=== PATIENT | male | born 1975 | race Caucasian/White ===

== ENCOUNTER 2017-03-12 10:00 | Emergency (ER) | payer OTHER | END 2017-03-12 11:11 | disposition home or self-care (01) | DX: R42 Dizziness and giddiness (principal); Z87.891 Personal history of nicotine dependence ==

== ENCOUNTER 2017-07-15 10:27 | Emergency (ER) | payer OTHER ==
--- NOTE | 2017-07-15 12:34 | ED Physician Documentation ---
PD HPI FOCAL NEURO - Stated complaint Stated Complaint: RT FT NUMB - Chief complaint Chief Complaint: Ext Problem - History obtained from History obtained from: Patient - History of Present Illness Timing - onset: Today Timing - duration: Hours (he was doing easy exercises, no direct impact and noted onset of numbness in right great toe/foot/anterior lower leg. Had had similar with nerve compression prior to low back surgery few years ago. Has only mild back pain. No weakness.) Timing - details: Abrupt onset Severity of deficit: Moderate Weakness: Leg, Foot, Right Associated symptoms: No: Headache, Nausea / vomiting Contributing factors: negative: Anticoagulated, Vascular dz Baseline status: positive: A&OX3, ambulatory, indep Similar symptoms before: Diagnosis (sciatic nerve compression lower lumbar disc) Recently seen: Not recently seen Review of Systems Constitutional: denies: Fever, Chills GI: denies: Nausea, Vomiting, Diarrhea Skin: denies: Rash, Lesions Neurologic: reports: Numbness. denies: Focal weakness PD PAST MEDICAL HISTORY - Past Medical History Cardiovascular: None Respiratory: None Neuro: None Endocrine/Autoimmune: None GI: None : None HEENT: Other Psych: None Musculoskeletal: Chronic back pain Derm: None - Past Surgical History Past Surgical History: Yes General: Appendectomy Ortho: Spine surgery - Present Medications Home Medications: Ambulatory Orders Medication Instructions Recorded Confirmed Dexamethasone [Decadron] 4 mg PO DAILY #5 tablet 07/15/17 Methocarbamol [Robaxin] 500 mg PO Q6H PRN #25 tablet 07/15/17 - Allergies Allergies/Adverse Reactions: Allergies Allergy/AdvReac Type Severity Reaction Status Date / Time No Known Drug Allergies Allergy Verified 03/12/17 10:11 - Social History Does the pt smoke?: Yes Smoking Status: Former smoker Does the pt drink ETOH?: No Does the pt have substance abuse?: No - Immunizations Immunizations are current?: Yes - POLST Patient has POLST: No PD ED PE NORMAL - Vitals Vital signs reviewed: Yes - General General: Alert and oriented X 3, No acute distress, Well developed/nourished - Abdomen Abdomen: Soft, Non tender - Back Back: No CVA TTP, No spinal TTP (some muscular tenderness right lumbar muscles. ) - Derm Derm: Normal color, Warm and dry, No rash - Neuro Neuro: Alert and oriented X 3, No motor deficit, Normal speech, Other ( decreased sensation to touch anterolateral lower leg and great toe/dorsum foot. He can dorsiflex okay. Only on right symptoms. ) - Psych Psych: Normal mood, Normal affect Results - Vitals Vitals: Oxygen O2 Source Room air - Rads (name of study) lumbar Radiology: Prelim report reviewed, EMP read contemporaneously (hardware in place , no acute process), See rad report PD MEDICAL DECISION MAKING - ED course Complexity details: considered differential (Symptoms c/w recurrent sciatic nerve irritation, which he had prior to back surgery. He does not have weakness in area and no caudal symptoms. Hardware in place on plain film. ), d/w patient Departure - Departure Disposition: 01 Home, Self Care Clinical Impression: Numbness of right foot Sciatica Qualifiers: Laterality: right Qualified Code(s): M54.31 - Sciatica, right side Condition: Stable Record reviewed to determine appropriate education?: Yes Instructions: ED Sciatica Follow-Up: BRIGETTE Mujica [Provider Group] Prescriptions: Dexamethasone [Decadron] 4 mg PO DAILY #5 tablet Methocarbamol [Robaxin] 500 mg PO Q6H PRN #25 tablet PRN Reason: Spasms Comments: The irritation of the nerve may be from muscle spasms or inflammation and so try the Decadron daily for 5 more days and methocarbamol 3-4 times a day for the next for 5 days. Avoid heavy lifting and vigorous activity. Recheck with your primary care or consult your back surgeon at [facility] if the leg numbness persists more than a day or 2. Discharge Date/Time: 07/15/17 14:46
[2017-07-15] MEDS: DEXAMETHASONE 10 MG/ML VIAL PO STA (13:05)
[2017-07-15] MEDS ORDERED: CHERRY SYRUP 10 ML UDC PO ONE (13:07)
[2017-07-15] MEDS ORDERED: DEXAMETHASONE 10 MG/ML VIAL ONE (13:07)
--- NOTE | 2017-07-15 14:32 | XRAY Preliminary Report ---
Exam: XR Lumbar Spine 2 View IMPRESSION: Postoperative changes, mild disk space narrowing at L3-L4 and L5-S1. [facility] SITE ID: [id number]
--- NOTE | 2017-07-15 14:34 | XRAY Report ---
EXAM: LUMBOSACRAL SPINE RADIOGRAPHY EXAM DATE: 07/15/2017 02:19 PM. CLINICAL HISTORY: Prior back surgery; onset right foot numb today. COMPARISONS: None. TECHNIQUE: 3 views. FINDINGS: Alignment: Normal. No spondylolisthesis or scoliosis. Bones: 5 lumbar vertebrae. No fractures or bone lesions. Pedicle screws and rods in L5 and S1 with as sociated postoperative changes. Disks: Intervertebral disk device at L5-S1 with mild disk space narrowing. Mild narrowing at L3-L4. O ther disk spaces well-preserved. Facets: Minimal degenerative changes. Sacroiliac Joints: Unremarkable. Soft Tissues: Unremarkable. IMPRESSION: Postoperative changes, mild disk space narrowing at L3-L4 and L5-S1. [facility] Referring Provider Line: [phone] SITE ID: [id number]
[2017-07-15 14:46] VITALS: BP 120/72
== END 2017-07-15 14:46 | disposition home or self-care (01) ==
LOC: ED 10:27
DX: R20.0 Anesthesia of skin (principal); M54.31 Sciatica, right side; Z87.891 Personal history of nicotine dependence
CPT/HCPCS: 72100; 99283; A9270

== ENCOUNTER 2017-10-18 08:51 | Emergency (ER) | payer OTHER ==
[2017-10-18 09:40] LABS: BASOPHILS # (AUTO) 0.1 10^3/uL (0.0-0.1); BASOPHILS % (AUTO) 0.8 %; EOSINOPHILS # (AUTO) 0.1 10^3/uL (0.0-0.7); EOSINOPHILS % (AUTO) 1.7 %; HGB - HEMOGLOBIN 17.4 g/dL (14.0-18.0); LYMPHOCYTES # (AUTO) 1.4 10^3/uL (1.5-3.5); LYMPHOCYTES % (AUTO) 20.1 %; MEAN CORPUSCULAR HEMOGLOBIN 32.3 pg (27.0-31.0); MEAN CORPUSCULAR HGB CONC 35.5 g/dL (32.0-36.0); MEAN PLATELET VOLUME 10.1 fL (7.4-11.4); MONOCYTES # (AUTO) 0.6 10^3/uL (0.0-1.0); MONOCYTES % (AUTO) 8.7 %; NEUTROPHILS # (AUTO) 4.8 10^3/uL (1.5-6.6); NEUTROPHILS % (AUTO) 68.7 %; RED BLOOD COUNT 5.38 10^6/uL (4.70-6.10); RED CELL DISTRIBUTION WIDTH 12.8 % (12.0-15.0)
[2017-10-18] MEDS ORDERED: SODIUM CHLORIDE 0.9% 1,000 ML IV ONE (09:51)
[2017-10-18] MEDS ORDERED: ONDANSETRON 4 MG/2 ML VIAL IVP STA (09:51)
--- NOTE | 2017-10-18 09:51 | ED Physician Documentation ---
PD HPI ABD PAIN - Stated complaint Stated Complaint: VOMITING,DIARRHEA - Chief complaint Chief Complaint: Abd Pain - History obtained from History obtained from: Patient - History of Present Illness Timing - onset: How many days ago (pt with nausea and vomiting and diarrhea that started 24-36 hours ago. Multiple episodes of each, no fevers, no travel, no ABX use. has not tried any treatment for these complaints. No rashes. last episode of each was this AM.) Review of Systems Constitutional: denies: Fever, Chills Ears: denies: Drainage/discharge Nose: denies: Sinus pressure / pain Throat: denies: Sore throat Cardiac: denies: Chest pain / pressure, Palpitations Respiratory: denies: Dyspnea, Cough, Wheezing GI: reports: Abdominal Pain, Nausea, Vomiting, Diarrhea. denies: Constipation, Hematemesis, Bloody / black stool : denies: Dysuria, Frequency Skin: denies: Rash, Lesions Musculoskeletal: denies: Back pain Neurologic: denies: Headache, LOC PD PAST MEDICAL HISTORY - Past Medical History Past Medical History: Yes Cardiovascular: None Respiratory: None Neuro: Other Endocrine/Autoimmune: None GI: None : None HEENT: Other Psych: None Musculoskeletal: Chronic back pain Derm: None Other Past Medical History: vertigo - Past Surgical History Past Surgical History: Yes General: Appendectomy Ortho: Spine surgery - Present Medications Home Medications: Ambulatory Orders Medication Instructions Recorded Confirmed Ondansetron Odt [Zofran Odt] 4 mg PO Q6H PRN #7 tablet 10/18/17 - Allergies Allergies/Adverse Reactions: Allergies Allergy/AdvReac Type Severity Reaction Status Date / Time No Known Drug Allergies Allergy Verified 10/18/17 09:17 - Social History Does the pt smoke?: No Smoking Status: Never smoker Does the pt drink ETOH?: No Does the pt have substance abuse?: No - Immunizations Immunizations are current?: Yes - POLST Patient has POLST: No PD ED PE NORMAL - General General: Alert and oriented X 3 - HEENT HEENT: Atraumatic, Moist mucous membranes - Cardiac Cardiac: RRR, No murmur, No gallop, No rub - Respiratory Respiratory: No respiratory distress, Clear bilaterally - Abdomen Abdomen: Soft, Non tender, Non distended - Back Back: No CVA TTP - Derm Derm: Normal color, No rash - Extremities Extremities: No deformity - Neuro Neuro: Alert and oriented X 3, 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, No motor deficit, No sensory deficit, Normal speech Eye Opening: Spontaneous Motor: Obeys Commands Verbal: Oriented GCS Score: 15 - Psych Psych: Normal mood, Normal affect Results - Vitals Vitals: Vital Signs - 24 hr 10/18/17 09:14 Temperature 36.7 C Heart Rate 91 Respiratory 16 Rate Blood Pressure 139/86 H O2 Saturation 97 Oxygen O2 Source Room air - Labs Labs: Laboratory Tests 10/18/17 10/18/17 09:34 09:34 WBC 7.0 RBC 5.38 Hgb 17.4 Hct 49.0 MCV 91.0 MCH 32.3 H MCHC 35.5 RDW 12.8 Plt Count 181 MPV 10.1 Neut # 4.8 Lymph # 1.4 L [place] # 0.6 Eos # 0.1 Baso # 0.1 Absolute Nucleated RBC 0.00 Nucleated RBC % 0.0 Sodium 137 Potassium 3.7 Chloride 104 Carbon Dioxide 25 Anion Gap 8.0 BUN 16 Creatinine 1.0 Estimated GFR (MDRD) 82 L Glucose 102 H Calcium 9.5 Total Bilirubin 0.9 AST 20 ALT 49 Alkaline Phosphatase 63 Total Protein 8.1 Albumin 5.2 Globulin 2.9 Albumin/Globulin Ratio 1.8 Lipase 23 PD MEDICAL DECISION MAKING - ED course Complexity details: d/w patient ED course: pt is healthy. no travel. no indication for ABX for the treatment of his diarrhea. has tolerated PO intake. No hx of UTI's, received fluids in the ER. Will discharge home with antinausea meds. Departure - Departure Disposition: 01 Home, Self Care Clinical Impression: Vomiting Qualifiers: Vomiting type: unspecified Vomiting Intractability: non-intractable Nausea presence: with nausea Qualified Code(s): R11.2 - Nausea with vomiting, unspecified Diarrhea Qualifiers: Diarrhea type: unspecified type Qualified Code(s): R19.7 - Diarrhea, unspecified Condition: Good Instructions: ED Nausea Vomiting Follow-Up: NIKOLAS AKHTAR [Primary Care Provider] - Prescriptions: Ondansetron Odt [Zofran Odt] 4 mg PO Q6H PRN #7 tablet PRN Reason: Nausea / Vomiting Comments: Return to the ER for any new or worsening symptoms.
[2017-10-18 09:53] LABS: ALBUMIN/GLOBULIN RATIO 1.8 (1.0-2.2); BILIRUBIN,TOTAL 0.9 mg/dL (0.2-1.0); CALCIUM 9.5 mg/dL (8.5-10.3); POTASSIUM 3.7 mmol/L (3.5-5.0); TOTAL PROTEIN 8.1 g/dL (6.7-8.2)
[2017-10-18] MEDS ORDERED: ONDANSETRON 4 MG/2 ML VIAL ONE (10:15)
[2017-10-18 11:29] VITALS: BP 141/88
[2017-10-18 11:41] LABS: BILIRUBIN,URINE NEGATIVE (NEGATIVE)
[2017-10-18 11:42] LABS: UA CHARGE (STRIP ONLY) YES; UR CULTURE IF IND NOT INDICATED
== END 2017-10-18 11:34 | disposition home or self-care (01) ==
LOC: ED 08:51
DX: R11.2 Nausea with vomiting, unspecified (principal); R19.7 Diarrhea, unspecified
CPT/HCPCS: 36415; 80053; 81001; 81003; 83690; 85025; 87086; 96361; 96374; 99283

== ENCOUNTER 2018-02-04 14:44 | Emergency (ER) | payer OTHER ==
--- NOTE | 2018-02-04 16:22 | ED Physician Documentation ---
PD HPI MALE - Stated complaint Stated Complaint: GROIN PX - Chief complaint Chief Complaint: General - History obtained from History obtained from: Patient - History of Present Illness Timing - onset: Today Timing - details: Abrupt onset Associated symptoms: Scrotal swelling, Other (inguinal pain onset when lifting heavy object. [place] a tear/pressure feeling right inguinal area and some feeling of fullness in scrotum. Pain with movement.). No: Dysuria, Urinary frequency Similar symptoms before: Has not had sx before Recently seen: Not recently seen Review of Systems Cardiac: denies: Chest pain / pressure, Palpitations Respiratory: denies: Dyspnea, Cough GI: denies: Abdominal Pain, Nausea, Vomiting, Constipation, Diarrhea : denies: Dysuria Neurologic: denies: Focal weakness, Numbness, Near syncope PD PAST MEDICAL HISTORY - Past Medical History Cardiovascular: None Respiratory: None Neuro: Other Endocrine/Autoimmune: None GI: None : None HEENT: Other Psych: None Musculoskeletal: Chronic back pain Derm: None - Past Surgical History Past Surgical History: Yes General: Appendectomy Ortho: Spine surgery - Present Medications Home Medications: Ambulatory Orders Medication Instructions Recorded Confirmed Naproxen [Naprosyn] 500 mg PO BID PRN #20 tablet 02/04/18 Tramadol HCl 50 mg PO Q6H PRN #20 tablet 02/04/18 - Allergies Allergies/Adverse Reactions: Allergies Allergy/AdvReac Type Severity Reaction Status Date / Time No Known Drug Allergies Allergy Verified 02/04/18 14:49 - Social History Does the pt smoke?: No Smoking Status: Never smoker Does the pt drink ETOH?: No Does the pt have substance abuse?: No - Immunizations Immunizations are current?: Yes - POLST Patient has POLST: No PD ED PE NORMAL - Vitals Vital signs reviewed: Yes - General General: Alert and oriented X 3, Well developed/nourished, Other (appears in pain due to right inguinal and scrotal area. No abd pain per se. ) - Cardiac Cardiac: RRR - Respiratory Respiratory: Clear bilaterally - Abdomen Abdomen: Normal bowel sounds, Soft, Non tender, Non distended - Male Male : Other (right inguinal area very tender with feeling of fullness concerning for hernia. There is some tenderness right scrotal area. The testicle feels normal itself and is at normal lie. ) - Rectal Rectal: Deferred - Back Back: No CVA TTP - Derm Derm: Normal color, Warm and dry - Extremities Extremities: No tenderness to palpate, Normal ROM s pain - Neuro Neuro: Alert and oriented X 3, No motor deficit, Normal speech Results - Vitals Vitals: Vital Signs - 24 hr 02/04/18 02/04/18 02/04/18 14:45 19:10 19:17 Temperature 37.0 C Heart Rate 101 H 82 Respiratory 16 18 Rate Blood Pressure 147/92 H 143/107 H 142/95 H O2 Saturation 94 97 02/04/18 02/04/18 02/04/18 19:19 21:00 21:35 Temperature 36.4 C L Heart Rate 79 75 74 Respiratory 16 16 15 Rate Blood Pressure 130/89 H 115/41 L 126/72 O2 Saturation 97 98 100 Oxygen O2 Source Room air - Rads (name of study) scrotal U/S Radiology: Prelim report reviewed, Discussed with rads (no obvious abnormality. He could not comment on inguinal area per se (apparently is a separate order for inguinal U/S). He suggested if concern for acute hernia or incarceration, then CT or US are both good, and CT shows internal ring well too. ) pelvic CT Radiology: Prelim report reviewed (no signs of hernia at this time (CT not sure if done with valsalva, but would show an incarcerated hernia anyway, which is the concern).), Discussed with rads Departure - Departure Disposition: 01 Home, Self Care Clinical Impression: Strain of muscle of right groin region Inguinal hernia Qualifiers: Obstruction and gangrene presence: without obstruction or gangrene Laterality: unilateral Recurrence: non-recurrent Qualified Code(s): K40.90 - Unilateral inguinal hernia, without obstruction or gangrene, not specified as recurrent Condition: Stable Record reviewed to determine appropriate education?: Yes Instructions: ED Strain Groin, ED Hernia Inguinal Follow-Up: NIKOLAS AKHTAR [Primary Care Provider] - Prescriptions: Naproxen [Naprosyn] 500 mg PO BID PRN #20 tablet PRN Reason: Pain Tramadol HCl 50 mg PO Q6H PRN #20 tablet PRN Reason: Pain Comments: There is some fullness and inflammation in the groin area which can be consistent with a muscle strain and inflammation. There may be some hernia that can be in and out in that area. The CT scan did not show any hernia, so if there is a hernia, it is not consistently stuck out. Rest and no heavy lifting and minimal walking for 2-3 days. Use naproxen or ibuprofen 2-3 times a day for the next 5-6 days. Add pain medicine if needed. Follow-up with your primary care in couple of days, call for an appointment. Forms: Activity restrictions Discharge Date/Time: 02/04/18 21:35
[2018-02-04] MEDS ORDERED: ACETAMINOPHEN 325 MG TABLET PO STA (16:33)
[2018-02-04] MEDS ORDERED: IBUPROFEN 600 MG TABLET PO STA (16:33)
[2018-02-04] MEDS ORDERED: HYDROcod/ACETAM 5/325 MG TABLET PO STA ×2 (17:43→21:18)
--- NOTE | 2018-02-04 19:28 | Ultrasound Report ---
EXAM: SCROTAL ULTRASOUND EXAM DATE: 02/04/2018 06:41 PM. CLINICAL HISTORY: Right inguinal/scrotal pain with lifting heavy . COMPARISON: None. TECHNIQUE: Real-time scanning was performed with static images obtained. Both color-flow and Doppler spectral analysis were utilized. FINDINGS: Right: Testis: 3.8 x 2.0 x 3.8 cm. Normal size and echotexture. No mass, calcification, or abnormal blood fl ow. Epididymis: 2.0 x 0.6 x 0.9 cm. Normal size and echotexture. No mass or abnormal blood flow. 0.3 x 0. 2 x 0.3 cm epididymal head cyst. Hydrocele: Small with low level internal echoes. Varicocele: None. Pampiniform plexus veins appear normal in size. The patient seems to be painful ove r the area of the spermatic cord, but no gross abnormality is identified. Left: Testis: 4.5 x 2.6 x 3.2 cm. Normal size and echotexture. No mass, calcification, or abnormal blood fl ow. Epididymis: 3.2 x 0.4 x 1.0 cm. Normal size and echotexture. No mass or abnormal blood flow. Hydrocele: Small simple. Varicocele: Mild. IMPRESSION: 1. Negative scrotal ultrasound without findings to explain right-sided pain. 2. Dedicated inguinal ultrasound assessment for hernia was not performed. [facility] Referring Provider Line: [phone] SITE ID: [id number]
--- NOTE | 2018-02-04 19:28 | Ultrasound Preliminary Report ---
Exam: US TESTICLE W/DOPPLER LIMITED IMPRESSION: 1. Negative scrotal ultrasound without findings to explain right-sided pain. 2. Dedicated inguinal ultrasound assessment for hernia was not performed. [facility] SITE ID: [id number]
--- NOTE | 2018-02-04 21:09 | CT Report ---
EXAM: CT BONY PELVIS WITHOUT CONTRAST EXAM DATE: 02/04/2018 08:53 PM. CLINICAL HISTORY: Possible inguinal hernia. Abrupt onset right groin pain after heavy lifting. COMPARISON: Scrotal ultrasound today. TECHNIQUE: Thin-section axial images were acquired of the pelvis without contrast. Post-processing: C oronal and sagittal reformats. Other: No indication by the technologist that the study was performed with Valsalva maneuver. In accordance with CT protocol optimization, one or more of the following dose reduction techniques w ere utilized for this exam: automated exposure control, adjustment of mA and/or KV based on patient s ize, or use of iterative reconstructive technique. FINDINGS: Bones: No fracture or bone lesion. Bilateral pedicle screws and longitudinal stabilization spanning L 5-S1. L5-S1 disk space bone graft material. Sacroiliac Joints: No widening, erosions, or sclerosis. Symphysis Pubis: Unremarkable. Right Hip: The joint space is preserved. No calcified loose bodies. Left Hip: The joint space is preserved. No calcified loose bodies. Musculature: Normal. No fatty atrophy. Pelvic Cavity: The visualized bowel, bladder, and reproductive organs are unremarkable on this noncon trast exam. Other: No lymphadenopathy. No free air or free fluid. Minimal bilateral iliac artery calcification. T he other visualized soft tissues are unremarkable. Scrotum is unremarkable. No inguinal hernia. IMPRESSION: Negative noncontrast pelvic CT without findings to explain right-sided pain. No right ing uinal hernia at rest. [facility] The above findings were discussed with Dr. Stallworth by Dr. Junior Arias at 21:08 hrs on 02/04/18. Referring Provider Line: [phone] SITE ID: [id number]
--- NOTE | 2018-02-04 21:09 | CT Preliminary Report ---
Exam: CT PELVIS W/O IMPRESSION: Negative noncontrast pelvic CT without findings to explain right-sided pain. No right ing uinal hernia at rest. [facility] The above findings were discussed with Dr. Stallworth by Dr. Junior Arias at 21:08 hrs on 02/04/18. SITE ID: [id number]
[2018-02-04] MEDS ORDERED: HYDROcod/ACET 5/325 Prepack 6 PO STA (21:18)
[2018-02-04 21:55] VITALS: BP 126/72
== END 2018-02-04 21:35 | disposition home or self-care (01) ==
LOC: ED 14:44
DX: S39.011A Strain of muscle, fascia and tendon of abdomen, initial encounter (principal); X50.0XXA Overexertion from strenuous movement or load, initial encounter; K40.90 Unilateral inguinal hernia, without obstruction or gangrene, not specified as recurrent
CPT/HCPCS: 72192; 76870; 93976; 99283; A9270

== ENCOUNTER 2019-01-07 18:41 | Emergency (ER) | payer OTHER ==
--- NOTE | 2019-01-07 19:41 | XRAY Report ---
Reason: pain with swelling. injury last night. Procedure Date: 01/07/2019 Accession Number: [id number] / [id number] Procedure: XR - Foot 3 View LT CPT Code: FULL RESULT: EXAM: LEFT FOOT RADIOGRAPHY EXAM DATE: 01/07/2019 07:10 PM. CLINICAL HISTORY: Pain with swelling. Injury last night. COMPARISON: TOE(S) LT 08/02/2014 7:23 AM. TECHNIQUE: 3 views. FINDINGS: Bones: No fracture or focal bony lesion. Joints: No evidence of dislocation. Soft Tissues: No unexpected soft tissue findings. IMPRESSION: No evidence of fracture or dislocation. [facility]
--- NOTE | 2019-01-07 21:03 | ED Physician Documentation ---
PD HPI LOWER EXT INJURY - Stated complaint Stated Complaint: TOE PX - Chief complaint Chief Complaint: Trauma Ext - History obtained from History obtained from: Patient - History of Present Illness PD HPI LOW EXT INJURY LOCATION: Left, Toe Type of injury: Blunt / blow (his dog jumped and landed onto left great toe area yesterday, with some bruising and tenderness. Today, the MTP area is extremely painful, tender, with local swelling.) Where injury occurred: Home Timing - onset: Last night Timing - details: Abrupt onset, Still present (much worse today) Worsened by: Moving, Palpating Associated symptoms: Swelling, Discolored (red). No: Weakness, Numbness Similar symptoms before: No diagnosis (he says he had had similar pain right great toe a few years ago without obvious cause and it lasted several days and went away. No Dx.) Recently seen: Not recently seen Review of Systems Skin: denies: Abrasion (s), Laceration (s) Neurologic: denies: Focal weakness, Numbness PD PAST MEDICAL HISTORY - Past Medical History Past Medical History: Yes Cardiovascular: None Respiratory: None Endocrine/Autoimmune: None GI: None : None HEENT: Other Psych: None Musculoskeletal: Chronic back pain Derm: None - Past Surgical History Past Surgical History: Yes General: Appendectomy Ortho: Spine surgery, Other - Present Medications Home Medications: Ambulatory Orders Medication Instructions Recorded Confirmed Naproxen [Naprosyn] 500 mg PO BID PRN #20 tablet 02/04/18 Tramadol HCl 50 mg PO Q6H PRN #20 tablet 02/04/18 Dexamethasone [Decadron] 4 mg PO DAILY #5 tablet 01/07/19 Naproxen 500 mg PO BID #20 tablet 01/07/19 Oxycodone HCl/Acetaminophen 1 - 2 each PO Q6H PRN #14 tablet 01/07/19 [Percocet 5-325 mg Tablet] - Allergies Allergies/Adverse Reactions: Allergies Allergy/AdvReac Type Severity Reaction Status Date / Time No Known Drug Allergies Allergy Verified 01/07/19 19:07 - Social History Does the pt smoke?: No Smoking Status: Never smoker Does the pt drink ETOH?: No Does the pt have substance abuse?: No - Immunizations Immunizations are current?: Yes - POLST Patient has POLST: No PD ED PE NORMAL - Vitals Vital signs reviewed: Yes - General General: Alert and oriented X 3, Well developed/nourished, Other (appears in pain) - Derm Derm: Normal color, Warm and dry - Extremities Extremities: Other (left great toe MTP with swelling, very tender, focal redness. No skin lesions/lacerations. Has some bruising dorsal distal toe proximal to nailbed. ) Results - Vitals Vitals: Vital Signs - 24 hr 01/07/19 01/07/19 19:04 21:41 Temperature 36.5 C Heart Rate 93 94 Respiratory 14 16 Rate Blood Pressure 141/96 H 136/86 H O2 Saturation 98 98 Oxygen O2 Source Room air PD MEDICAL DECISION MAKING - ED course Complexity details: considered differential (contusion of the great toe area, but very tender with redness seems likely gout inflammation in response to the injury. ), d/w patient Departure - Departure Disposition: 01 Home, Self Care Clinical Impression: Foot contusion Qualifiers: Encounter type: initial encounter Laterality: left Qualified Code(s): S90.32XA - Contusion of left foot, initial encounter Gout attack Qualifiers: Gout site: toe Gout etiology: unspecified cause Laterality: left Qualified Code(s): M10.9 - Gout, unspecified Condition: Stable Record reviewed to determine appropriate education?: Yes Instructions: ED Arthritis Gout, ED Sprain Toe Follow-Up: Terrell Rios ARNP [Primary Care Provider] - Prescriptions: Dexamethasone [Decadron] 4 mg PO DAILY #5 tablet Naproxen 500 mg PO BID #20 tablet Oxycodone HCl/Acetaminophen [Percocet 5-325 mg Tablet] 1 - 2 each PO Q6H PRN #14 tablet PRN Reason: pain Comments: This may be solely from the bruising and injury from your dog. However the degree of tenderness and some redness at the joint areas are suggestive of a gout episode. These would both be treated with reduced motion with the orthopedic shoe and elevating the toe often. Anti-inflammatories would be the mainstay for treatment with both nonsteroidal and steroidal anti-inflammatories. Add Tylenol or Percocet if needed for pain. Recheck if not improving over the next several days as both the bruising or gout should improve with these. Discharge Date/Time: 01/07/19 21:44
[2019-01-07] MEDS ORDERED: CHERRY SYRUP 10 ML UDC PO ONE (21:24)
[2019-01-07] MEDS: oxyCODONE 5 MG TABLET PO STA (21:25)
[2019-01-07] MEDS: oxyCODONE/ACET 5/325 Prepack 4 PO STA (21:25)
[2019-01-07] MEDS: NAPROXEN 250 MG TABLET PO STA (21:25)
[2019-01-07] MEDS: DEXAMETHASONE 10 MG/ML VIAL PO STA (21:25)
[2019-01-07 21:44] VITALS: BP 136/86
== END 2019-01-07 21:44 | disposition home or self-care (01) ==
LOC: ED 18:41
DX: S90.32XA Contusion of left foot, initial encounter (principal); W54.8XXA Other contact with dog, initial encounter; M10.9 Gout, unspecified
CPT/HCPCS: 99283

== ENCOUNTER 2019-02-04 07:29 | Outpatient (CLI) | payer OTHER ==
[2019-02-04] MEDS ORDERED: GADOBUTROL 10 MMOL/10 ML VIAL ONE (07:47)
[2019-02-04] MEDS ORDERED: GADOBUTROL 10 MMOL/10 ML VIAL IVP ONE (08:35)
--- NOTE | 2019-02-04 09:44 | MRI Report ---
Reason: SPONDYLOSIS WITHOUT MYELOPATHY OR RADICULOPATHY,CRISTIAN Procedure Date: 02/04/2019 Accession Number: [id number] / [id number] Procedure: MRI - Lumbar Spine W/WO CPT Code: FULL RESULT: EXAM: MRI LUMBAR SPINE WITHOUT AND WITH CONTRAST EXAM DATE: 02/04/2019 08:31 AM. CLINICAL HISTORY: Low back pain. Bilateral lower extremity radiculopathy with pain radiating into both legs. History of previous diskectomy and fusion at L5-S1. COMPARISONS: LUMBAR SPINE 2 VIEW 07/15/2017 1:59 PM LUMBAR SPINE W/O 05/29/2013 8:42 AM. TECHNIQUE: Multiplanar, multisequence T1-weighted and fluid-sensitive sequences of the lumbar spine from T12 to S1 before and after administration of intravenous contrast. Other: None. IV contrast: 10 mL Gadavist. FINDINGS: Neurologic Structures: The conus terminates at upper L2. The conus medullaris and cauda equina are unremarkable. Alignment: Mild retrolisthesis of L3 on L4 and L4 on L5 appears unchanged from prior radiographs but is progressive from prior MRI. Bone Marrow: Five [id number] lumbar vertebral bodies are assumed. No gross fractures or bone lesions. No bone marrow replacement or abnormal enhancement. Disk Levels/Facets: T12-L1: Unremarkable. L1-L2: Unremarkable. L2-L3: Unremarkable. L3-L4: Mild to moderate degenerative disk disease. Circumferential disk bulge. Additional asymmetric left intraforaminal and far lateral broad-based protrusion with enhancing annular fissure. Mild facet arthropathy. Mild stenosis of the right foramen and central canal. Moderate stenosis of the left foramen. L4-L5: Mild to moderate degenerative disk disease and facet arthropathy. Circumferential disk bulge. Posterior annular fissure. Additional right greater than left intraforaminal and far lateral protrusion. Far right lateral annular fissure. Mild central stenosis. No cauda equina compression. Mild left and mild to moderate right foraminal stenosis. L5-S1: Fused disk space. Patent central canal after dorsal surgical decompression. Susceptibility artifact from posterior dariela and screw fusion hardware. No significant residual stenosis. Disk herniation seen previously is no longer evident. Spinal Canal: No enhancing masses within the spinal canal. No epidural abscess. Musculature: Normal. No edema, abnormal enhancement, or fatty atrophy. Other: None. IMPRESSION: 1. Unremarkable findings at T12-L1 through L2-L3. 2. No significant residual/recurrent stenosis at L5-S1, showing chronic findings of previous decompression and fusions. 3. Progressive degenerative changes at L3-L4 and L4-L5 levels, where there are findings of additional stenosis involving multiple zones as detailed above. 4. Minimal degenerative retrolisthesis of L3 on L4 and L4 on L5. Comment: The following findings are so common in adults without low back pain that while we report their presence, they must be interpreted with caution and in the context of the clinical situation. (Reference Dylank et al, Spine 2001) Prevalence of findings in patients without low back pain: Disk degeneration (any evidence): 92% Disk desiccation/T2 signal loss: 83% Disk height loss: 56% Disk bulge: 64% Disk protrusion: 32% Annular tear/high intensity zone: 38% RADIA
== END 2019-02-04 07:30 | disposition home or self-care (01) ==
LOC: DI 07:29
PROVIDERS: ATTEND Registered Nurse Diabetes Educator
DX: M51.36 Other intervertebral disc degeneration, lumbar region (principal); M47.9 Spondylosis, unspecified; M48.061 Spinal stenosis, lumbar region without neurogenic claudication; M51.26 Other intervertebral disc displacement, lumbar region; Z98.1 Arthrodesis status; M43.16 Spondylolisthesis, lumbar region
CPT/HCPCS: 72158; A9585